=== PATIENT | male | born 1975 | race Two or more races ===

== ENCOUNTER 2021-11-10 04:10 | Day surgery (SDC) | payer OTHER ==
[2021-11-04 12:56] VITALS: BMI 33.2
[2021-11-10] MEDS ORDERED: PROPOFOL 60 ML ONE (11:48)
[2021-11-10] MEDS ORDERED: SUCCINYLCHOLINE CHLORIDE 200 MG/10 ML SYRINGE ONE (11:55)
[2021-11-10] MEDS ORDERED: PROMETHAZINE HCL 25 MG/1 ML VIAL IVPUSH PRN (12:36)
[2021-11-10] MEDS ORDERED: ONDANSETRON 4 MG/2 ML VIAL IVPUSH PRN (12:36)
[2021-11-10] MEDS ORDERED: oxyCODONE HCL 5 MG TABLET PO PRN (12:36)
[2021-11-10 13:47] VITALS: RESP 16
[2021-11-10 14:31] VITALS: BP 120/66; PULSE 65; TEMP 98
== END 2021-11-10 14:30 | disposition home or self-care (01) ==
LOC: JASU-SURG 04:10
PROVIDERS: ATTEND Otolaryngology
PROC: 0WJQ8ZZ Inspection of Respiratory Tract, Via Natural or Artificial Opening Endoscopic Approach (ICD-10-PCS; principal; 2021-11-10 11:00)
DX: G47.33 Obstructive sleep apnea (adult) (pediatric) (principal)
CPT/HCPCS: 82962; 94760

== ENCOUNTER 2021-12-15 04:03 | Day surgery (SDC) | payer OTHER ==
[2021-12-13 15:37] VITALS: BMI 32.8
[2021-12-15] MEDS ORDERED: ROCURONIUM BROMIDE 50 MG/5 ML SYRINGE ONE ×3 (13:34→15:30)
[2021-12-15] MEDS ORDERED: SEVOFLURANE 250 ML BTL ONE (13:34)
[2021-12-15] MEDS ORDERED: MIDAZOLAM HCL 2 MG/2 ML SINGLE DOSE VIAL ONE (14:55)
[2021-12-15] MEDS ORDERED: PROPOFOL 20 ML ONE ×2 (14:55→14:56)
[2021-12-15] MEDS ORDERED: ePHEDrine SULFATE 50 MG/1 ML AMPULE ONE (14:58)
[2021-12-15] MEDS ORDERED: ceFAZolin 2 GRAM PREMIX BAG IVPB ONE (15:15)
[2021-12-15] MEDS ORDERED: ONDANSETRON 4 MG/2 ML VIAL IVPUSH PRN (16:51)
[2021-12-15] MEDS ORDERED: LACTATED RINGERS SOLUTION 1,000 ML IV SCH (17:00)
[2021-12-15] MEDS ORDERED: ACETAMINOPHEN 1000 MG/100 ML BAG IVPB ONE (18:57)
[2021-12-15 19:42] VITALS: RESP 20; TEMP 99
[2021-12-15 19:48] VITALS: BP 122/65; PULSE 78
== END 2021-12-15 19:36 | disposition home or self-care (01) ==
LOC: JASU-SURG 04:03
PROVIDERS: ATTEND Otolaryngology
PROC: 0CTPXZZ Resection of Tonsils, External Approach (ICD-10-PCS; 2021-12-15)
PROC: 0CB30ZZ Excision of Soft Palate, Open Approach (ICD-10-PCS; principal; 2021-12-15 14:00)
PROC: 0CBN0ZZ Excision of Uvula, Open Approach (ICD-10-PCS; 2021-12-15 14:00)
DX: G47.33 Obstructive sleep apnea (adult) (pediatric) (principal)
CPT/HCPCS: 82962; 87070; 87076; 87077; 87205; 88304-TC; 94760

== ENCOUNTER 2024-04-20 11:31 | Emergency (ER) | payer OTHER ==
[2024-04-20 11:37] VITALS: BP 125/80; PULSE 75; RESP 16; TEMP 97.3; BMI 33.6
[2024-04-20] MEDS ORDERED: DIPHTH,PERTUSS(ACELL),TET 0.5 ML DISP.SYRIN IM ONE (11:56)
[2024-04-20] MEDS: DIPHTH,PERTUSS(ACELL),TET 0.5 ML DISP.SYRIN IM ONE (12:00)
== END 2024-04-20 12:10 | disposition home or self-care (01) ==
LOC: FER 11:31
PROC: 3E0234Z Introduction of Serum, Toxoid and Vaccine into Muscle, Percutaneous Approach (ICD-10-PCS; principal; 2024-04-20)
DX: S80.811A Abrasion, right lower leg, initial encounter (principal); Z23 Encounter for immunization; W17.1XXA Fall into storm drain or manhole, initial encounter; Y99.0 Civilian activity done for income or pay
CPT/HCPCS: 90471; 90715; 99284-25